=== PATIENT | female | born 1950 | race Caucasian/White ===

== ENCOUNTER 2019-11-29 14:27 | Outpatient (CLI) | payer MEDICARE, SELFPAY ==
--- NOTE | 2019-11-29 14:38 | MM_ITS ---
WS: [id number] BILATERAL DIGITAL SCREENING MAMMOGRAPHY WITH CAD CLINICAL INFORMATION: SCREENING HISTORY: Screening mammogram. No current complaints. COMPARISON: TECHNIQUE: Bilateral CC and MLO views. FINDINGS: Scattered fibroglandular densities bilaterally. No suspicious focal mass, asymmetry, calcifications, or architectural distortion. No evidence of malignancy. Lucent centered calcifications right breast. Stable isodense nodular densities right breast. MM/[place] [id number] IMPRESSION: BI-RADS: 2-Benign FOLLOW UP: 1 Year Follow-up Recommend return to annual screening mammography.
== END 2019-11-29 14:28 | disposition home or self-care (01) ==
LOC: RADSHAW 14:34
PROVIDERS: PCP Nurse Practitioner; Visit Provider Nurse Practitioner
DX: Z12.31 Encounter for screening mammogram for malignant neoplasm of breast (principal)
CPT/HCPCS: 77067

== ENCOUNTER 2021-01-14 15:13 | Outpatient (CLI) | payer MEDICARE, SELFPAY ==
--- NOTE | 2021-01-14 15:18 | MM_ITS ---
WS: [id number] BILATERAL SCREENING DIGITAL MAMMOGRAM WITH CAD HISTORY: SCREENING COMPARISON: 11/29/2019 and 09/09/2018 Bilateral CC and MLO views submitted. Computer aided detection analyzed. Breast composition: There are scattered areas of fibroglandular density. No suspicious masses, microc alcifications or architectural distortion. Benign calcifications RIGHT breast. MM/[place] [id number] IMPRESSION: BI-RADS: 2-Benign FOLLOW UP: 1 Year Follow-up
== END 2021-01-14 15:14 | disposition home or self-care (01) ==
LOC: RADSHAW 15:17
PROVIDERS: PCP Nurse Practitioner; Visit Provider Nurse Practitioner
DX: Z12.31 Encounter for screening mammogram for malignant neoplasm of breast (principal)
CPT/HCPCS: 77067

== ENCOUNTER 2021-03-25 13:41 | Outpatient (CLI) | payer MEDICARE, SELFPAY ==
--- NOTE | 2021-03-25 13:47 | CT_ITS ---
WS: [id number] CT HEAD TECHNIQUE: Noncontrast CT of the head obtained from the skullbase to the vertex. CLINICAL INFORMATION: REPEATED FALLS, FREQUENT FALLS COMPARISON: None. DLP: 1787.[address] scans at [facility] use at least one of these dose optimization techniques: automated e xposure control; mA and/or kV adjustment per patient size (includes targeted exams where dose is matc hed to clinical indication); or iterative reconstruction. FINDINGS: No evidence of intracranial hemorrhage or mass effect. Ventricular system and basal cisterns are zavala nt. Moderate small vessel changes with moderate parenchymal volume loss. No extra-axial fluid collect ions. No evidence of mass or mass effect. Normal almazan-white differentiation. Paranasal sinuses and mastoid air cells are well aerated. Incidental small osteoma overlying the fron mel calvarium. CT/CT head wo con* [id number] IMPRESSION: 1. No evidence of intracranial hemorrhage or mass effect. 2. Moderate small vessel changes with moderate parenchymal volume loss. 3. No acute intracranial findings.
--- NOTE | 2021-03-25 13:47 | XR_ITS ---
WS: [id number] KNEE RIGHT TECHNIQUE: 2 views of the right knee CLINICAL INFORMATION: PAIN IN RIGHT KNEE COMPARISON: None. FINDINGS: Moderate tricompartmental arthritis. Hypertrophic patella. Soft tissue edema. No significant joint ef fusion. No acute fractures. XR/XR knee RT 1-2V [id number] IMPRESSION: 1. Moderate tricompartmental arthritis. 2. No acute fractures. Kellgren-Kenton Classification:
--- NOTE | 2021-03-25 13:47 | XR_ITS ---
WS: [id number] HIP WITH PELVIS RIGHT TECHNIQUE: 3 views of the right hip with pelvis CLINICAL INFORMATION: PAIN IN RIGHT HIP COMPARISON: None. FINDINGS: Advanced osteoarthritis right hip with podw-[id number]-fbfd articulation. Hypertrophic changes about the acet abulum. No acute fractures. Osteopenia. Surgical clips in the pelvis. Pelvic phleboliths. XR/XR hip RT 2-3V wo/w pel* [id number] IMPRESSION: Advanced osteoarthritis right hip with wbxp-[id number]-xlri articulation and hypertroph ic change. Tonnis classification: grade 3: large cysts in femoral head/acetabulum or joint space obliteration/severe narrowing or severe femoral head deformity vs AVN
== END 2021-03-25 13:42 | disposition home or self-care (01) ==
PROVIDERS: PCP Nurse Practitioner; Visit Provider Nurse Practitioner
DX: R29.6 Repeated falls (principal); M17.11 Unilateral primary osteoarthritis, right knee; M16.11 Unilateral primary osteoarthritis, right hip
CPT/HCPCS: 70450; 73502; 73560

== ENCOUNTER → 2021-10-15 13:13 | Outpatient (BNVA) | payer MEDICARE, SELFPAY | PROVIDERS: PCP Nurse Practitioner; Referring Provider Nurse Practitioner; Visit Provider Specialist | DX: G23.1 Progressive supranuclear ophthalmoplegia [Steele-Richardson-Olszewski] (principal); M21.371 Foot drop, right foot; M43.6 Torticollis | CPT/HCPCS: 99205 ==

== ENCOUNTER 2021-10-28 06:00 | Outpatient (RCR) | payer MEDICARE, MEDICAID, SELFPAY | END 2021-10-30 23:59 | disposition home or self-care (01) | LOC: SPO 06:00 | PROVIDERS: PCP Nurse Practitioner; Referring Provider Specialist; Visit Provider Specialist | DX: R29.90 Unspecified symptoms and signs involving the nervous system (principal) | CPT/HCPCS: 97162 ==

== ENCOUNTER 2021-10-31 06:00 | Outpatient (RCR) | payer MEDICARE, MEDICAID, SELFPAY | END 2021-11-30 23:59 | disposition home or self-care (01) | LOC: SPO 06:00 | PROVIDERS: PCP Nurse Practitioner; Referring Provider Specialist; Visit Provider Specialist | DX: R29.90 Unspecified symptoms and signs involving the nervous system (principal) | CPT/HCPCS: 97110; 97112; 97167; 97530; 97535 ==

== ENCOUNTER 2021-12-01 06:00 | Outpatient (RCR) | payer MEDICARE, MEDICAID, SELFPAY | END 2021-12-05 23:59 | disposition home or self-care (01) | LOC: SPO 06:00 | PROVIDERS: PCP Nurse Practitioner; Referring Provider Specialist; Visit Provider Specialist | DX: R29.90 Unspecified symptoms and signs involving the nervous system (principal) | CPT/HCPCS: 97110; 97112 ==

== ENCOUNTER → 2022-01-14 16:16 | Outpatient (BNVA) | payer MEDICARE, MEDICAID, SELFPAY | PROVIDERS: PCP Nurse Practitioner; Visit Provider Specialist | DX: G90.3 Multi-system degeneration of the autonomic nervous system (principal); R26.89 Other abnormalities of gait and mobility | CPT/HCPCS: 99214 ==

== ENCOUNTER 2022-02-24 14:54 | Outpatient (CLI) | payer MEDICARE, MEDICAID, SELFPAY ==
--- NOTE | 2022-02-24 15:04 | MM_ITS ---
WS: [id number] BILATERAL 3D TOMOSYNTHESIS DIGITAL SCREENING MAMMOGRAPHY WITH CAD CLINICAL INFORMATION: SCREENING HISTORY: Screening mammogram. No current complaints. COMPARISON: January 14, 2021 TECHNIQUE: Bilateral CC and MLO views. FINDINGS: Scattered fibroglandular densities bilaterally. No suspicious focal mass, asymmetry, calcifications, or architectural distortion. No evidence of malignancy. Incidental punctate calcifications. MM/[place] [id number] IMPRESSION: BI-RADS: 2-Benign FOLLOW UP: 1 Year Follow-up Recommend return to annual screening mammography.
== END 2022-02-24 14:55 | disposition home or self-care (01) ==
LOC: RAD 14:55
PROVIDERS: PCP Nurse Practitioner Family; Visit Provider Nurse Practitioner Family
DX: Z12.31 Encounter for screening mammogram for malignant neoplasm of breast (principal)
CPT/HCPCS: 77067

== ENCOUNTER → 2022-07-14 15:18 | Outpatient (BNVA) | payer MEDICARE, MEDICAID, SELFPAY | PROVIDERS: PCP Nurse Practitioner Family; Visit Provider Specialist | DX: G90.3 Multi-system degeneration of the autonomic nervous system (principal); R26.89 Other abnormalities of gait and mobility; M43.6 Torticollis | CPT/HCPCS: 99214 ==

== ENCOUNTER → 2022-10-22 13:01 | Outpatient (BNVA) | payer MEDICARE, MEDICAID, SELFPAY | PROVIDERS: PCP Nurse Practitioner Family; Visit Provider Specialist | DX: G24.3 Spasmodic torticollis (principal); G43.711 Chronic migraine without aura, intractable, with status migrainosus; G90.3 Multi-system degeneration of the autonomic nervous system | CPT/HCPCS: 64615; 64616 ==

== ENCOUNTER → 2023-01-28 11:39 | Outpatient (BNVA) | payer MEDICARE, MEDICAID, SELFPAY | PROVIDERS: PCP Nurse Practitioner Family; Visit Provider Specialist | DX: G43.711 Chronic migraine without aura, intractable, with status migrainosus (principal); G24.3 Spasmodic torticollis; G90.3 Multi-system degeneration of the autonomic nervous system | CPT/HCPCS: 64616; 96372; 99212; J1885; J2405 ==

== ENCOUNTER 2023-03-02 14:54 | Outpatient (CLI) | payer MEDICARE, MEDICAID, SELFPAY ==
--- NOTE | 2023-03-02 15:13 | MM_ITS ---
WS: [id number] BILATERAL 2D DIGITAL SCREENING MAMMOGRAPHY WITH CAD CLINICAL INFORMATION: SCREENING HISTORY: Screening mammogram. No current complaints. COMPARISON: 2021 TECHNIQUE: Bilateral CC and MLO views. FINDINGS: Scattered fibroglandular densities bilaterally. No suspicious focal mass, asymmetry, calcifications, or architectural distortion. No evidence of malignancy. Incidental punctate and lucent centered calci fications. IMPRESSION: MM/[place] [id number] BI-RADS: 2-Benign FOLLOW UP: 1 Year Follow-up Recommend return to annual screening mammography.
== END 2023-03-02 14:55 | disposition home or self-care (01) ==
LOC: RAD 14:54
PROVIDERS: PCP Nurse Practitioner Family; Visit Provider Nurse Practitioner Family
DX: Z12.31 Encounter for screening mammogram for malignant neoplasm of breast (principal)
CPT/HCPCS: 77067

== ENCOUNTER → 2023-05-06 11:02 | Outpatient (BNVA) | payer MEDICARE, MEDICAID, SELFPAY | PROVIDERS: PCP Nurse Practitioner Family; Visit Provider Specialist | DX: G24.3 Spasmodic torticollis (principal); L89.90 Pressure ulcer of unspecified site, unspecified stage; G90.3 Multi-system degeneration of the autonomic nervous system | CPT/HCPCS: 64616; 99214 ==

== ENCOUNTER → 2023-08-05 11:40 | Outpatient (BNVA) | payer MEDICARE, MEDICAID, SELFPAY | PROVIDERS: PCP Nurse Practitioner Family; Visit Provider Specialist | DX: G90.3 Multi-system degeneration of the autonomic nervous system (principal); G24.3 Spasmodic torticollis; Z60.4 Social exclusion and rejection | CPT/HCPCS: 64616; 99214 ==

== ENCOUNTER → 2023-11-11 11:20 | Outpatient (BNVA) | payer MEDICARE, MEDICAID, SELFPAY | PROVIDERS: PCP Nurse Practitioner Family; Visit Provider Specialist | DX: G90.3 Multi-system degeneration of the autonomic nervous system (principal); G24.3 Spasmodic torticollis; Z60.4 Social exclusion and rejection; R03.0 Elevated blood-pressure reading, without diagnosis of hypertension | CPT/HCPCS: 64616; 99213 ==

== ENCOUNTER → 2024-02-03 13:49 | Outpatient (BNVA) | payer MEDICARE, MEDICAID, SELFPAY | PROVIDERS: PCP Nurse Practitioner Family; Visit Provider Specialist | DX: G90.3 Multi-system degeneration of the autonomic nervous system (principal); G24.3 Spasmodic torticollis | CPT/HCPCS: 64616 ==

== ENCOUNTER 2024-03-28 06:00 | Outpatient (CLI) | payer MEDICARE, MEDICAID, SELFPAY | END 2024-03-28 06:01 | disposition home or self-care (01) | LOC: RAD 03-30 11:04 | PROVIDERS: PCP Nurse Practitioner Family; Visit Provider Nurse Practitioner Family | DX: Z12.31 Encounter for screening mammogram for malignant neoplasm of breast (principal); R92.313 Mammographic fatty tissue density, bilateral breasts; R92.1 Mammographic calcification found on diagnostic imaging of breast | CPT/HCPCS: 77063; 77067 ==

== ENCOUNTER → 2024-05-19 14:37 | Outpatient (BNVA) | payer MEDICARE, MEDICAID, SELFPAY | PROVIDERS: PCP Nurse Practitioner Family; Visit Provider Specialist | DX: G24.3 Spasmodic torticollis (principal); G90.3 Multi-system degeneration of the autonomic nervous system | CPT/HCPCS: 64616; 99212 ==

== ENCOUNTER → 2024-08-25 14:02 | Outpatient (BNVA) | payer MEDICARE, MEDICAID, SELFPAY | PROVIDERS: PCP Nurse Practitioner Family; Visit Provider Specialist | DX: G90.3 Multi-system degeneration of the autonomic nervous system (principal); G24.3 Spasmodic torticollis | CPT/HCPCS: 64616; J9999 ==

== ENCOUNTER 2024-09-27 20:23 | Emergency (ER) | payer MEDICARE, MEDICAID, SELFPAY ==
[2024-09-27 20:29] VITALS: BP 147/81; PULSE 67; RESP 16; TEMP 36.3; O2SAT 98
--- NOTE | 2024-09-27 20:43 | CTR_ITS ---
PROCEDURE INFORMATION: Exam: CT Head Without Contrast Exam date and time: 09/27/2024 9:18 PM Age: 74 years old Clinical indication: Injury or trauma; Fall; Blunt trauma (contusions or hematomas); Consciousness not specified; Additional info: Fall, head injury TECHNIQUE: Imaging protocol: Computed tomography of the head without contrast. Radiation optimization: All CT scans at this facility use at least one of these dose optimization techniques: automated exposure control; mA and/or kV adjustment per patient size (includes targeted exams where dose is matched to clinical indication); or iterative reconstruction. COMPARISON: CT head wo con* [id number] 03/25/2021 1:59 PM RADIATION DOSE METRICS: Total DLP (mGy-cm): 1217 FINDINGS: Brain: Mild diffuse cortical volume loss. Moderate hypodensities in supratentorial periventricular and subcortical white matter, consistent with microangiopathy. No intracranial hemorrhage. Cerebral ventricles: No ventriculomegaly. Paranasal sinuses: Visualized sinuses are unremarkable. No fluid levels. Mastoid air cells: Visualized mastoid air cells are well aerated. Bones: Unremarkable. No acute fracture. Soft tissues: Left frontal scalp and periorbital soft tissue hematoma. Vasculature: No hyperdense artery. CT/CT head wo con* [id number] IMPRESSION: 1. No fracture or intracranial hemorrhage. 2. Left frontal scalp and periorbital soft tissue hematoma.
--- NOTE | 2024-09-27 20:43 | CTR_ITS ---
PROCEDURE INFORMATION: Exam: CT Maxillofacial Without Contrast Exam date and time: 09/27/2024 9:18 PM Age: 74 years old Clinical indication: Injury or trauma; Fall; Blunt trauma (contusions or hematomas); Eyelid; Upper left; Additional info: Trauamatic facial pain TECHNIQUE: Imaging protocol: Computed tomography of the face without contrast. Radiation optimization: All CT scans at this facility use at least one of these dose optimization techniques: automated exposure control; mA and/or kV adjustment per patient size (includes targeted exams where dose is matched to clinical indication); or iterative reconstruction. COMPARISON: CT head wo con* [id number] 03/25/2021 1:59 PM RADIATION DOSE METRICS: Total DLP (mGy-cm): 611.6 FINDINGS: Paranasal sinuses: No air-fluid levels. Orbital cavities: Orbits are normal. Globes are unremarkable. Auditory system: Filling defects in the bilateral external auditory canals, [id number]-[id number]-[id number]-right. Bones: Degenerative changes in the TMJs. No fracture. Soft tissues: Left frontal scalp and periorbital soft tissue hematoma. CT/CT facial bones wo con* [id number] IMPRESSION: 1. No fracture. 2. Left frontal scalp and periorbital soft tissue hematoma. 3. Filling defects in the external auditory canals, left greater than right, most likely cerumen. Clinical correlation recommended.
[2024-09-27 21:11] VITALS: BP 193/105; O2SAT 95
--- NOTE | 2024-09-27 21:20 | CTR_ITS ---
PROCEDURE INFORMATION: Exam: CT Thoracic Spine Without Contrast Exam date and time: 09/27/2024 9:26 PM Age: 74 years old Clinical indication: Injury or trauma; Fall; Blunt trauma (contusions or hematomas); Additional info: Traumatic upper back pain TECHNIQUE: Imaging protocol: Computed tomography of the thoracic spine without contrast. Radiation optimization: All CT scans at this facility use at least one of these dose optimization techniques: automated exposure control; mA and/or kV adjustment per patient size (includes targeted exams where dose is matched to clinical indication); or iterative reconstruction. COMPARISON: CT cervical spin wo con* [id number] 09/27/2024 9:24 PM RADIATION DOSE METRICS: Total DLP (mGy-cm): 785.19 FINDINGS: Bones/joints: Decreased osseous mineralization. Exaggerated thoracic kyphosis. Flowing syndesmophytes, can be seen with ankylosing spondylitis. Multilevel disc degeneration and facet arthropathy. No acute appearing vertebral body compression deformity. Facet alignment is preserved. Soft tissues: Dorsal paraspinal soft tissues are unremarkable. Vasculature: Ascending aortic aneurysm measuring 4.1 cm. Lymph nodes: Fat stranding in the left supraclavicular fossa extending along the left lateral chest wall. There is also mild asymmetric enlargement of the left subscapularis and supraspinatus/infraspinatus. Thyroid: Bilateral thyroid nodules, largest on the left measures 1.6 cm. 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 CT/CT thoracic spin wo con* [id number] IMPRESSION: 1. No evidence of acute fracture or traumatic malalignment in the thoracic spine. 2. Fat stranding in the left supraclavicular fossa extending along the left lateral chest wall. There is also mild asymmetric enlargement of the left subscapularis and supraspinatus/infraspinatus. In the setting trauma may be related to chest wall contusion with muscular injury, but clinical correlation is needed. 3. Ascending aortic aneurysm measuring 4.1 cm. 4. 1.6 cm left thyroid nodule. Recommend outpatient ultrasound for further evaluation, if not previously performed.
--- NOTE | 2024-09-27 21:20 | CTR_ITS ---
PROCEDURE INFORMATION: Exam: CT Cervical Spine Without Contrast Exam date and time: 09/27/2024 9:24 PM Age: 74 years old Clinical indication: Injury or trauma; Fall; Blunt trauma; Additional info: Fall, neck pain TECHNIQUE: Imaging protocol: Computed tomography of the cervical spine without contrast. Radiation optimization: All CT scans at this facility use at least one of these dose optimization techniques: automated exposure control; mA and/or kV adjustment per patient size (includes targeted exams where dose is matched to clinical indication); or iterative reconstruction. COMPARISON: CT facial bones wo con* [id number] 09/27/2024 9:18 PM RADIATION DOSE METRICS: Total DLP (mGy-cm): 383.08 FINDINGS: Bones: Mild rightward curvature. The vertebral body stature is maintained. No fracture or subluxation. The facets are intact with mild degenerative changes. Anterior inferior dislocation of the left glenohumeral joint with a Hill-Sachs lesion. Small posterior disc bulges at C3-C4 and C4-C5 with no significant spinal canal stenosis. No significant neural foraminal narrowing. Lungs: Lung apices are normal. Thyroid: 0.8 cm peripherally calcified right thyroid nodule. 1.6 cm posterior left thyroid nodule. Vasculature: Bilateral carotid bulb calcified plaque. Soft tissues: Unremarkable. CT/CT cervical spin wo con* [id number] IMPRESSION: 1. Anterior inferior dislocation of the left glenohumeral joint with a Hill-Sachs lesion. 2. No cervical spine fracture. 3. 1.6 cm left thyroid nodule. Ultrasound follow-up recommended. COMMENTS: Consistent with the [employer]'s Incidental Findings Committee white paper (J Am Martha Radiol 2015): In patients aged 35 years and older with an incidental thyroid nodule equal to or greater than 1.[address], MRI or extrathyroidal US, further evaluation with dedicated thyroid US is recommended for patients with normal life expectancy and without comorbidities. For smaller nodules without suspicious features, no further evaluation or follow up is recommended.
--- NOTE | 2024-09-27 21:20 | W.ED.HEATRA ---
HPI - Head Injury General: Chief complaint: Head Injury Stated complaint: fall lac on face Time Seen by Provider: 09/27/24 21:11 History of Present Illness: 74-year-old female with a history of of hypertension, diabetes and some dementia who presents emergency room by ambulance from a retirement after having had a fall. She hit her head on a concrete floor. She normally walks with a walker. She has a cut on her left forehead. No known loss of consciousness. No altered mental status. She is alert at the time of my exam. When I ask her if she has any pain anywhere else within her head she says no, however when they took her to CT she was complaining of some neck and upper back pain and so CT was done of that as well. Related Data Home Medications ?Medication ?Instructions ?Recorded ?Confirmed aspirin 81 mg tablet,delayed 81 mg PO DAILY 04/23/21 08/25/24 release bisoprolol 2.5 1 tab PO DAILY 04/23/21 08/25/24 mg-hydrochlorothiazide 6.25 mg tablet cetirizine 10 mg capsule (Zyrtec) 10 mg PO DAILY PRN 04/23/21 08/25/24 fluticasone propionate 50 1 inh inhalation BID 04/23/21 08/25/24 mcg/actuation blister powder for inhalation fosinopril 10 mg tablet 10 mg PO DAILY 04/23/21 08/25/24 lovastatin 40 mg tablet 80 mg PO DAILY 04/23/21 08/25/24 metformin 500 mg tablet,extended 1,000 mg PO BID 04/23/21 08/25/24 release 24 hr sitagliptin phosphate 100 mg 100 mg PO DAILY 04/23/21 08/25/24 tablet (Januvia) acetaminophen 500 mg tablet 500 mg PO QID PRN 02/03/24 08/25/24 cholecalciferol (vitamin D3) 25 25 mcg PO DAILY 02/03/24 08/25/24 mcg (1,000 unit) tablet cyanocobalamin (vitamin B-12) 500 500 mcg PO DAILY 02/03/24 08/25/24 mcg tablet loratadine 10 mg tablet (Allergy 10 mg PO DAILY PRN 02/03/24 08/25/24 Relief (loratadine)) Previous Rx's ?Medication ?Instructions ?Recorded Walker with seat and wheels #1 ea 01/07/22 onabotulinumtoxinA 100 unit See Rx Instructions .Route 07/25/24 solution for injection (Botox) .COMPLEX #2 ea Allergies Allergy/AdvReac Type Severity Reaction Status Date / Time Penicillins Allergy Unknown Verified 09/27/24 20:34 Review of Systems Narrative: Constitutional symptoms: Negative except as documented in HPI. Skin symptoms: Negative except as documented in HPI. Eye symptoms: Negative except as documented in HPI. ENMT symptoms: Negative except as documented in HPI. Respiratory symptoms: Negative except as documented in HPI. Cardiovascular symptoms: Negative except as documented in HPI. Gastrointestinal symptoms: Negative except as documented in HPI. Genitourinary symptoms: Negative except as documented in HPI. Musculoskeletal symptoms: Negative except as documented in HPI. Neurologic symptoms: Negative except as documented in HPI. Psychiatric symptoms: Negative except as documented in HPI. Endocrine symptoms: Negative except as documented in HPI. PFSH ED PFSH: Social History Smoking and tobacco/nicotine status: never used tobacco/nicotine Alcohol intake: never Substance/Drug Use: never Physical Exam Narrative: EXAM NARRATIVE: General: Alert, no acute distress. Skin: Warm, dry. Head: Normocephalic, atraumatic. Neck: Supple, trachea midline. Eye: Extraocular movements are intact. Ears, nose, mouth and throat: mucosa moist. Cardiovascular: Regular, Normal peripheral perfusion. Respiratory: Lungs are clear to auscultation, respirations are non-labored, breath sounds are equal, Symmetrical chest wall expansion. Gastrointestinal: Soft, Nontender, Non distended Musculoskeletal: Apparent dislocation of the left shoulder. Neurological: Alert, No focal neurological deficit observed. Psychiatric: Cooperative, appropriate mood & affect. Course Vital Signs: Vital signs: Vital Signs Temperature 97.4 F L 09/27/24 20:29 Pulse Rate 82 09/28/24 00:47 Respiratory Rate 18 09/28/24 00:47 Blood Pressure 158/85 09/28/24 00:47 Pulse Oximetry 94 09/28/24 00:47 Oxygen Delivery Me thod Room Air 09/28/24 00:47 Oxygen Flow Rate 1.5 09/28/24 00:40 MDM - Head Injury Medcial Decision Making Medical decision making: Differential diagnosis including but not limited to and based on the above HPI, review of systems and physical exam: patient with fall and head injury. Subdural hematoma, subarachnoid hemorrhage, concussion, skull fracture. Orders placed to evaluate differential diagnosis based on the above differential, HPI and physical exam CT scan of the head was ordered. CT head: No acute intracranial process. no intracranial hemorrhage, no evidence of infarct. no evidence of acute fracture.This was reviewed and interpreted by myself the ER physician. CT of the cervical spine: No fracture. Degenerative changes. Good alignment. No step-offs. This was reviewed and interpreted by myself the emergency room physician. I also reviewed the radiologist report. CT of the thoracic spine: Degenerative changes. Suggest shoulder dislocation. No fracture. Good alignment. No step-offs. This was reviewed and interpreted by myself the emergency room physician. X-ray of the left shoulder shows dislocation. This was reviewed and interpreted by myself the emergency room physician. I also reviewed the radiology report. Laceration repair procedure: Time: 2229 Confirmed patient, procedure, side, and site. Time out performed prior to procedure. Verbal consent was obtained by patient and/or responsible green party. Indication: Laceration Location: Left forehead Length: 2 cm Description: Anesthesia: 6 mL 1% lidocaine with epinephrine Area prepared by sterile field with Betadine. # 4, 4-0 sutures were utilized, simple, interrupted technique. Post procedure examination: Circulation, motor, sensory intact. Patient tolerated the procedure well. No complications, bleeding. Total time: 15 min. Pt advised to keep the area clean and dry, wash twice per day with antibacterial soap and water. Return to the ED or PCP in 7-10 days for suture removal. Consultation: I spoke with Dr. Amaro with orthopedics. He agrees with reduction and follow-up in clinic. Procedural sedation Time: 12:20 AM Confirmed: Patient and procedure correct. Consent: Consent: The risks and benefits of monitored anesthesia care, including the risk of aspiration, nausea/vomiting and the risks of not performing the procedure, including severe pain and inability to complete the procedure, were all discussed with the patient. The alternatives of performing the procedure, including local anesthesia and IV analgesia, also discussed. The patient has a ride home available Indication: Closed reduction. Monitoring: Cardiac, blood pressure, continuous pulse oximetry. Preparation: Suction, IV access, Constant attendance, Supplemental oxygen. See ER physician note for summary of the patient's present medication list and for drug allergy and intolerance history Physical exam: Airway: appears normal, Heart: regular rate and rhythm, Breath sounds: equal. Pre sedation vital signs: See nurse's notes. Procedural sedation: 100 mg IV propofol. . Post sedation vital signs: See nurse's notes. Patient tolerated: Well. Complications: The patient was recovered from the sedation without complication or incident. Post sedation condition: Patient returned to pre-sedation level of awareness. The monitoring was discontinued at this time. Performed by: Self. Notes: Pt attended by independent trained observer time of sedation was 15 minutes. . Fracuture / Dislocation procedure Time: 12:20 AM Confirmed correct: Patient, procedure, sight. Consent: Patient Indication: Dislocation of the left shoulder Location: Left shoulder Pre procedure exam: Sensory intact, Procedural sedation: (repeat): IV propofol 50 mg Monitoring: Cardiac, blood pressure and pulse oximiter Technique: Supination and flexion Post-procedure exam: _ alignment improved, circulatory neuro intact. Immobilization: Arm sling Patient tolerated: Well Complications: None Performed by (rpt): Self Procedure time: 5 minutes Repeat shoulder film: Shows resolution of dislocated shoulder. Films were interpreted by myself the emergency room provider and pending final radiology review. I reviewed the patient's medical record. Assessment and plan: Shoulder dislocation Head injury Forehead laceration ?Laceration repair and shoulder reduction. - Discharged home - Discussed plan with patient. Answered any questions. - Evaluation and treatment of this problem were appropriate in the emergency setting. Lab Data Radiology Impressions Face CT 09/27/24 20:43 IMPRESSION: 1. No fracture. 2. Left frontal scalp and periorbital soft tissue hematoma. 3. Filling defects in the external auditory canals, left greater than right, most likely cerumen. Clinical correlation recommended. Head CT 09/27/24 20:43 IMPRESSION: 1. No fracture or intracranial hemorrhage. 2. Left frontal scalp and periorbital soft tissue hematoma. Cervical Spine CT 09/27/24 21:20 IMPRESSION: 1. Anterior inferior dislocation of the left glenohumeral joint with a Hill-Sachs lesion. 2. No cervical spine fracture. 3. 1.6 cm left thyroid nodule. Ultrasound follow-up recommended. COMMENTS: Consistent with the [employer]'s Incidental Findings Committee white paper (J Am Martha Radiol 2015): In patients aged 35 years and older with an incidental thyroid nodule equal to or greater than 1.[address], MRI or extrathyroidal US, further evaluation with dedicated thyroid US is recommended for patients with normal life expectancy and without comorbidities. For smaller nodules without suspicious features, no further evaluation or follow up is recommended. Thoracic Spine CT 09/27/24 21:20 IMPRESSION: 1. No evidence of acute fracture or traumatic malalignment in the thoracic spine. 2. Fat stranding in the left supraclavicular fossa extending along the left lateral chest wall. There is also mild asymmetric enlargement of the left subscapularis and supraspinatus/infraspinatus. In the setting trauma may be related to chest wall contusion with muscular injury, but clinical correlation is needed. 3. Ascending aortic aneurysm measuring 4.1 cm. 4. 1.6 cm left thyroid nodule. Recommend outpatient ultrasound for further evaluation, if not previously performed. ADDENDUM: 09/27/24 [id number] Left anterior glenohumeral dislocation, review to separate radiographs. All radiology interpretation(s) finalized by discharge Discharge Plan Discharge Patient Disposition: Home Clinical Impression: Facial laceration, Shoulder dislocation, Head injury, Bruise of periocular tissue Condition: Stable Prescriptions: No Action aspirin 81 mg tablet,delayed release (DR/EC) 81 mg PO DAILY bisoprolol-hydrochlorothiazide 2.5-6.25 mg tablet 1 tab PO DAILY fluticasone propionate 50 mcg/actuation blister with device 1 inh inhalation BID fosinopril 10 mg tablet 10 mg PO DAILY Januvia 100 mg tablet 100 mg PO DAILY lovastatin 40 mg tablet 80 mg PO DAILY Zyrtec 10 mg capsule 10 mg PO DAILY PRN metformin 500 mg tablet extended release 24 hr 1,000 mg PO BID cholecalciferol (vitamin D3) 25 mcg (1,000 unit) tablet 25 mcg PO DAILY loratadine [Allergy Relief (loratadine)] 10 mg tablet 10 mg PO DAILY PRN acetaminophen 500 mg tablet 500 mg PO QID PRN cyanocobalamin (vitamin B-12) 500 mcg tablet 500 mcg PO DAILY (DME) Walker with seat and wheels See Rx Instructions .Route .MEDSUPPLY Qty: 1 0RF Rx Instructions: As directed Botox 100 unit recon soln See Rx Instructions .ROUTE .COMPLEX Qty: 2 0RF Dose Instruction: Inject 200 units INTRAMUSCULARLY ONCE; 130 units LEFT sternomastoid, 40 units LEFT trapezius, 10 units LEFT semispinalis, 10 units LEFT scalenes, 10 units LEFT splenius Rx Instructions: Inject 200 units INTRAMUSCULARLY ONCE; 130 units LEFT sternomastoid, 40 units LEFT trapezius, 10 units LEFT semispinalis, 10 units LEFT scalenes, 10 units LEFT splenius Discharge Orders: Discharge ED (Routine); Ordered 09/28/24 Ordered By: Kristi Sheriff Referrals: Francesco Amaro DO [Physician, Orthopedics] - 4-7 days Referral Note: Call for an appointment Jeff,FELICITY Connell [Primary Care Provider, Nurse Practitioner] Discharge Diet: Usual diet Discharge Activity: Increase activity as tolerated Patient Instructions: Care For Your Stitches (ED), How to Use a Sling (ED), Opioid Safety, Pain Management Activity Restrictions/Additional Instructions: Please follow-up with Dr. Amaro in the next 5 to 7 days if you continue to have shoulder pain. Keep the area clean and dry, wash twice per day with antibacterial soap and water. Return to your primary provider or the emergency room in 7 days for suture removal. Avoid any prolonged submersion in water. Avoid all leija water, pond water, streams or other untreated water. Thank you for choosing [facility] for your healthcare needs today. You have been screened and evaluated and felt safe for discharge. Health conditions do change or evolve sometimes and as such it is important that you follow up with your Primary Doctor to be re checked, 3-5 days is a general good time frame for follow up. You are always welcome to return to the ED for re assessment if your symptoms are worsening or you have new concerns Print Language: Divehi Coding Level of Care Code ED Drum Barker Operator for Babar Garcia
[2024-09-27 21:40] VITALS: BP 160/96; O2SAT 96
[2024-09-27] MEDS: tetanus-dipt-pertussis 0.5 mL SDV IM (21:56)
[2024-09-27] MEDS: lidocaine-epi 1% 20 mL INJ INJECTION (21:57)
[2024-09-27 22:09] VITALS: BP 155/104; O2SAT 97
--- NOTE | 2024-09-27 22:32 | XRR_ITS ---
PROCEDURE INFORMATION: Exam: XR Left Shoulder Exam date and time: 09/27/2024 10:34 PM Age: 74 years old Clinical indication: Injury or trauma; Fall; Blunt trauma (contusions or hematomas); Shoulder; Left; Additional info: Dislocation TECHNIQUE: Imaging protocol: Radiologic exam of the left shoulder. Views: 2 or more views. COMPARISON: CT cervical spin wo con* [id number] 09/27/2024 9:24 PM FINDINGS: Bones/joints: Left anterior inferior glenohumeral dislocation with Hill-Sachs lesion. Soft tissues: Soft tissue swelling about the shoulder. XR/XR shoulder LT min 2V* [id number] IMPRESSION: Left anterior inferior glenohumeral dislocation with Hill-Sachs lesion.
[2024-09-27 22:41] VITALS: BP 178/85; O2SAT 95
[2024-09-27 23:04] VITALS: BP 156/122; O2SAT 95
[2024-09-28] VITALS (7 sets, daily range): BP systolic 138–187; BP diastolic 67–94; PULSE 76–85; RESP 12–18; O2SAT 93–99
[2024-09-28] MEDS: propofol 10 mg/mL SDV 20 mL 80 MG IVP (00:24)
--- NOTE | 2024-09-28 00:26 | XRR_ITS ---
PROCEDURE INFORMATION: Exam: XR Left Shoulder Exam date and time: 09/28/2024 12:27 AM Age: 74 years old Clinical indication: Injury or trauma; Fall; Blunt trauma (contusions or hematomas); Shoulder; Left; Injury details: Post reduction TECHNIQUE: Imaging protocol: Radiologic exam of the left shoulder. Views: 2 or more views. COMPARISON: CR (CHEST, ) 09/27/2024 10:34 PM FINDINGS: Bones/joints: Anatomic glenohumeral alignment status post reduction. Humeral Hill-Sachs lesion. Soft tissues: Unremarkable XR/XR shoulder LT min 2V* [id number] IMPRESSION: Anatomic glenohumeral alignment status post reduction.
[2024-09-28] MEDS: ondansetron 2 mg/ML SDV 2 mL 4 MG IVP (00:28)
== END 2024-09-28 02:20 | disposition home or self-care (01) ==
PROVIDERS: Emergency Provider Emergency Medicine; PCP Nurse Practitioner Family
DX: S43.015A Anterior dislocation of left humerus, initial encounter (principal); S01.81XA Laceration without foreign body of other part of head, initial encounter; W19.XXXA Unspecified fall, initial encounter; S09.90XA Unspecified injury of head, initial encounter; Z79.82 Long term (current) use of aspirin; Z79.84 Long term (current) use of oral hypoglycemic drugs
CPT/HCPCS: 12011; 23650; 70450; 70486; 72125; 72128; 73030; 90715; 96374; 99152; 99285; J2405; J2704; J9999

== ENCOUNTER → 2024-12-21 14:33 | Outpatient (BNVA) | payer MEDICARE, MEDICAID, SELFPAY | PROVIDERS: PCP Nurse Practitioner Family; Visit Provider Specialist | DX: G90.3 Multi-system degeneration of the autonomic nervous system (principal); G24.3 Spasmodic torticollis | CPT/HCPCS: 64616; 99212; J9999 ==

== ENCOUNTER → 2025-03-22 10:15 | Outpatient (BNVA) | payer MEDICARE, MEDICAID, SELFPAY | PROVIDERS: PCP Nurse Practitioner Family; Visit Provider Specialist | DX: G24.3 Spasmodic torticollis (principal); G90.3 Multi-system degeneration of the autonomic nervous system; G23.8 Other specified degenerative diseases of basal ganglia | CPT/HCPCS: 64616; J9999 ==

== ENCOUNTER 2025-04-17 13:55 | Outpatient (CLI) | payer MEDICARE, MEDICAID, SELFPAY ==
--- NOTE | 2025-04-17 14:10 | MM_ITS ---
WS: [id number] BILATERAL 3D TOMOSYNTHESIS DIGITAL SCREENING MAMMOGRAPHY WITH CAD CLINICAL INFORMATION: SCREENING HISTORY: Screening mammogram. No current complaints. COMPARISON: 2023 TECHNIQUE: Bilateral CC and MLO views. FINDINGS: Scattered fibroglandular densities bilaterally. No suspicious focal mass, asymmetry, calcifications, or architectural distortion. No evidence of malignancy. Incidental punctate and secretory calcifications. MM/MM scr tomosynthesis [id number] IMPRESSION: DENSITY: There are scattered areas of fibroglandular density. BI-RADS: 2 - Benign. FOLLOW UP: 1 Year Follow-up Recommend return to annual screening mammography.
== END 2025-04-17 13:56 | disposition home or self-care (01) ==
LOC: RAD 13:59
PROVIDERS: PCP Nurse Practitioner Adult Health; Visit Provider Electrodiagnostic Medicine
DX: Z12.31 Encounter for screening mammogram for malignant neoplasm of breast (principal); R92.323 Mammographic fibroglandular density, bilateral breasts; R92.1 Mammographic calcification found on diagnostic imaging of breast
CPT/HCPCS: 77063; 77067